=== PATIENT | female | born 1995 | race Caucasian/White ===

== ENCOUNTER 2017-01-09 01:48 | Observation (INO) | payer OTHER ==
[2017-01-09] MEDS ORDERED: NS 0.9% 1000 ML* 1,000 ML IV ONE ×2 (02:23→04:06)
[2017-01-09] MEDS ORDERED: Ondansetron INJ* 2 MG/ML VIAL IV ONE (02:24)
[2017-01-09 03:11] LABS: Albumin 4.2 g/dL (3.2-5.2); BUN/Creatinine Ratio 14.5 (8-20); C Reactive Protein 191.55 mg/L (< 5.00); Calcium 9.6 mg/dL (8.6-10.3); EGFR African American 123.5 (>60); EGFR Non-African American 96.1 (>60); Globulin 3.3 g/dL (2-4); Potassium 2.8 mmol/L (3.5-5.0); Total Bilirubin 0.4 mg/dL (0.2-1.0); Total Protein 7.5 g/dL (6.4-8.9)
[2017-01-09 03:19] LABS: Hematocrit 39 % (35-47); Hemoglobin 13.3 g/dl (12.0-16.0); Mean Corpuscular HGB Conc 34 g/dl (31-36); Mean Corpuscular Hemoglobin 29 pg (27-31); Mean Corpuscular Volume 87 fL (80-97); Mean Platelet Volume 10 um3 (7.4-10.4); Red Blood Count 4.55 10^6/ul (4.0-5.4); Red Cell Distribution Width 12 % (10.5-15); White Blood Count 8.9 10^3/ul (3.5-10.8)
[2017-01-09] MEDS ORDERED: Potassium Chlor TAB* 20 MEQ TAB.ER PO ONE ×2 (04:06→11:09)
[2017-01-09 04:24] LABS: Urine Bacteria Absent (Absent); Urine Bilirubin Negative (Negative); Urine Glucose Negative (Negative); Urine Nitrite Negative (Negative)
[2017-01-09 05:59] LABS: Hematocrit 36 % (35-47); Mean Corpuscular HGB Conc 33 g/dl (31-36); Mean Corpuscular Hemoglobin 29 pg (27-31); Mean Corpuscular Volume 87 fL (80-97); Mean Platelet Volume 9 um3 (7.4-10.4); Red Blood Count 4.15 10^6/ul (4.0-5.4); Red Cell Distribution Width 12 % (10.5-15); White Blood Count 6.9 10^3/ul (3.5-10.8)
[2017-01-09] MEDS ORDERED: metroNIDAZOLE IV 500 MG/100ML* 500 MG/100 ML BAG IVPB ONE (06:24)
[2017-01-09] MEDS ORDERED: Ciprofloxacin 400MG IVPREMIX(* 400 MG/200 ML BAG IVPB ONE (06:24)
[2017-01-09] MEDS ORDERED: Ondansetron INJ* 2 MG/ML VIAL IV PRN (08:32)
[2017-01-09] MEDS ORDERED: Loperamide CAP* 2 MG PO PRN (08:34)
[2017-01-09] MEDS ORDERED: NS 0.9% 1000 ML* 1,000 ML IV SCH (08:45)
[2017-01-09 10:17] LABS: BUN/Creatinine Ratio 13.1 (8-20); EGFR African American 159.2 (>60); EGFR Non-African American 123.8 (>60); Potassium 3.1 mmol/L (3.5-5.0)
[2017-01-09] MEDS ORDERED: Ibuprofen TAB* 400 MG PO PRN (13:31)
[2017-01-09] MEDS ORDERED: Acetaminophen TAB* 325 MG PO PRN (13:31)
[2017-01-09] MEDS ORDERED: Amoxicillin CAP* 500 MG PO SCH (13:31)
--- NOTE | 2017-01-09 13:47 | HP ---
CC: Madiha Rick NP HISTORY AND PHYSICAL/DISCHARGE SUMMARY: DATE OF ADMISSION: 01/09/17 PCP: Madiha Rick NP CHIEF COMPLAINT: Diarrhea, sore throat. HISTORY OF PRESENT ILLNESS: Ms. Darryn Camarena is a 21-year-old female with past medical history of IBS, fibromyalgia, who presents to the hospital with diarrhea, sore throat, and fevers. The patient states that her symptoms began on Wednesday, January 06, when she developed muscle aches, sore throat, subjective fevers, and decreased p.o. intake. She felt like she had strep, which she has had in the past, also some abdominal pain. She took some Advil. She did also have a drink that day at [facility] at [facility], where she is graduating from this weekend. Symptoms persisted into the next day. She had a few drinks of wine morning and continued to feel unwell. Then at night, she had some pastries, which she states she usually does not eat because it upsets her IBS. Beginning yesterday morning, the patient developed diarrhea. She said it has been completely liquidy and black. She reports it was incredibly frequent throughout the day and as soon as she would sit down, she would have to go up and have a bowel movement again. This was associated with some abdominal pain, but did not seem to be resolved with a bowel movement. She states she felt that she went 30 times over the course of the day. She called her father, who is a physician, who told her to monitor things and consider calling an ambulance if it got worse. She went to bed last night, woke up about an hour later and had to move her bowels again. When walking to the bathroom, she felt a cold sweat and felt presyncopal with some lightheadedness. She states she called EMS and when she was walking back to her room, she had a syncopal episode and found herself on the floor. She denies any history of GI bleeds. She says she takes naproxen intermittently for pain, which she took yesterday and also took Advil a few days ago. Denies any sick contacts. Has not had any chest pain, shortness of breath, rhinorrhea, although does report some throat congestion. PAST MEDICAL HISTORY: IBS, constipation, fibromyalgia. PAST SURGICAL HISTORY: [place] teeth removal and tonsillectomy. HOME MEDICATIONS : 1. Amitriptyline 10 mg by mouth nightly. 2. Naproxen 250 mg by mouth daily as needed for pain. ALLERGIES: The patient reports no known drug allergies. FAMILY HISTORY: Unknown, the patient was adopted. SOCIAL HISTORY: The patient is an [employer] student. Drinks alcohol intermittently, which she calls special occasions, up to 2-3 drinks. Smoked about a half to 1 pack a day for 3 years. Occasional marijuana use. REVIEW OF SYSTEMS: A 12-point review of systems is negative except for that as noted in the HPI. PHYSICAL EXAMINATION GENERAL: The patient is a young female, lying in bed, in no apparent distress. VITAL SIGNS: On admission: Temperature 97.7, heart rate 67, respiratory rate 18, O2 saturation 97% on room air, blood pressure 91/59. HEENT: Head normocephalic, atraumatic. Eyes: Pupils are equal, round, and reactive to light and accommodation. Anicteric sclerae. ENT: The patient with some mild white exudates in bilateral posterior oropharynx. Some erythema as well. LUNGS: Clear to auscultation bilaterally. No wheezes, rales, or rhonchi. CARDIOVASCULAR: Regular rate and rhythm. S1, S2 present. No murmurs, gallops , or rubs. ABDOMEN: Soft, nondistended. Tender to palpation in the lower quadrants. EXTREMITIES: No cyanosis, clubbing, or edema. NEUROLOGIC: The patient is alert and oriented x3. No focal neurological deficits. DIAGNOSTIC STUDIES/LAB DATA: White blood cell count of 8.9, hematocrit of 39, platelets of 136. Sodium 128, potassium 2.8, chloride 97, carbon dioxide 21, BUN 11, creatinine 0.76, glucose 105, lactic acid 0.5. LFTs within normal limits. CRP of 191. Lipase of 26. UA with 1+ protein, 2+ ketones, 3+ blood, trace leuk esterase, negative nitrites, 2+ wbc's, 3+ rbc's, squamous epithelial cells, hyaline casts. Stool with C. diff negative. Stool occult blood negative. ASSESSMENT AND PLAN: Sore throat, subjective fevers, diarrhea, syncope in a 21- year-old female, past medical history of IBS and fibromyalgia. 1. Sore throat and fevers. The patient with some exudates on physical exam. I have ordered a rapid strep test, which is pending at this time. We will follow up on this and treat if positive. 2. Abdominal discomfort, GI symptoms, diarrhea. Some of this could be due to possible strep, although the patient may have gastroenteritis as well. She states her stool is black; however, here sent down to lab, it was reported as dark brown and is guaiac negative. C. diff is also negative. Could have a viral gastroenteritis or could possibly be related to alcohol intake and dietary noncompliance with her IBS. We will start the patient on p.r.n. Imodium to see if we can slow her diarrhea. She does have some symptoms of dehydration and hypokalemia. She received IV fluids 2 liters in the emergency department, we will continue at 100 cc per hour. Repeat BMP is pending at this time. 3. Syncope. Likely due to hypotension, volume loss. IVF, will monitor on tele 4. Fibromyalgia. Continue the patient's home amitriptyline. 5. DVT prophylaxis: Low risk, ambulate as needed. 6. Code status: The patient is a full code. TIME SPENT: Total time spent on this admission was 40 minutes with over half the time spent [id number] with the patient in counseling and coordinating care. ADDENDUM: Patient was treated with IV fluids and Imodium with improvement in her symptoms. Rapid strep was negative, throat culture taken which is pending. Will treat empirically with Amoxicillin for strep pharyngitis. No events on tele. Possible viral GI infection. Will discharge home. [id number]/[facility] #: [id number] EVE
[2017-01-09 16:20] VITALS: BP 107/67
--- NOTE | 2017-01-09 20:24 | ED ---
Trena Larios Alok, scribed for Richard Colindres MD on 01/09/17 at 0235 . GI/ HPI - HPI Summary HPI Summary: 21F presents to the ED BIBA for black, tarry stools starting at 1200 today and increasing in frequency since. Pt also notes epigastric pain currently and vomiting last night. Pt also states that during call to 911 experiencing diaphoresis, blurry vision, and loss of balance. Pt also c/o sore throat with white spots. She has taken no medication for relief. PMHx includes IBS and recurring strep throat. PSHx includes tonsillectomy. Her LMP began yesterday. Pt denies tobacco and drinks ETOH occasionally, having more than usualy a few days ago. Her most recent tattoo was done 8 months ago. Pt denies recent antibiotics or recent hospital visits. - History of Current Complaint Chief Complaint: EDAbdPain Time Seen by Provider: 01/09/17 02:07 Stated Complaint: ABD PAIN Hx Obtained From: Patient Onset/Duration: Started Hours Ago, Atraumatic, Still Present Timing: Constant Severity: Moderate Current Severity: Moderate Location of Pain: Epigastric Associated Signs and Symptoms: Positive: Black Tarry Stool, Abdominal Pain Additional Signs & Symptoms: Positive: Other: - diaphoresis, blurry vision, loss of balance - Allergy/Home Medications Allergies/Adverse Reactions: Allergies Allergy/AdvReac Type Severity Reaction Status Date / Time No Known Allergies Allergy Verified 01/09/17 01:51 PMH/Surg Hx/FS Hx/Imm Hx Infectious Disease History: Denies: Traveled Outside the [place] in Last 30 Days - Family History Known Family History: Negative: Hypertension - Social History Occupation: Student Alcohol Use: Occasionally Hx Tobacco Use: No Review of Systems Positive: Skin Diaphoresis. Negative: Fever, Chills Positive: Blurred Vision. Negative: Erythema Positive: Sore Throat Negative: Chest Pain Negative: Shortness Of Breath, Cough Positive: Abdominal Pain, Vomiting, Nausea, Other - black tarry stool Negative: hematuria, incontinence Negative: Myalgia, Edema Negative: Rash Neurological: Other - Dizziness, loss of balance All Other Systems Reviewed And Are Negative: Yes Physical Exam - Summary Physical Exam Summary: Constitutional: Well-developed, Well-nourished, Alert. (-) Distressed Skin: Warm, Dry HENT: Normocephalic; Atraumatic Eyes: Conjunctiva normal Neck: Musculoskeletal ROM normal neck. (-) JVD, (-) Stridor, (-) Tracheal deviation Cardio: Rhythm regular, rate normal, Heart sounds normal; Intact distal pulses; The pedal pulses are 2+ and symmetric. Radial pulses are 2+ and symmetric. (-) Murmur Pulmonary/Chest wall: Effort normal. (-) Respiratory distress, (-) Wheezes, (-) Rales Abd: Soft, Epigastric tenderness Musculoskeletal: (-) Edema Lymph: (-) Cervical adenopathy Neuro: Alert, Oriented x3 Psych: Mood and affect Normal Triage Information Reviewed: Yes Vital Signs On Initial Exam: Initial Vital Signs Temp 97.7 F 01/09/17 02:22 Pulse 67 01/09/17 02:22 Resp 18 01/09/17 02:22 BP 91/59 01/09/17 02:22 Pulse Ox 97 01/09/17 02:22 Vital Signs Reviewed: Yes Diagnostics - Vital Signs Vital Signs Temp Pulse Resp BP Pulse Ox 01/09/17 07:40 36.5 C 01/09/17 06:45 78 87/43 99 01/09/17 06:44 73 88/45 98 01/09/17 05:00 65 87/47 97 01/09/17 04:00 67 91/53 97 01/09/17 03:00 67 16 96/52 99 01/09/17 02:22 36.5 C 67 18 91/59 97 - Laboratory Lab Results: Lab Results 01/09/17 01/09/17 01/09/17 Range/Units 02:45 02:45 02:45 WBC 8.9 (3.5-10.8) 10^3/ul RBC 4.55 (4.0-5.4) 10^6/ul Hgb 13.3 (12.0-16.0) g/dl Hct 39 (35-47) % MCV 87 (80-97) fL MCH 29 (27-31) pg MCHC 34 (31-36) g/dl RDW 12 (10.5-15) % Plt Count 136 L (150-450) 10^3/ul MPV 10 (7.4-10.4) um3 Neut % (Auto) 84.7 H (38-83) % Lymph % (Auto) 6.7 L (25-47) % Hood % (Auto) 8.2 (1-9) % Eos % (Auto) 0.1 (0-6) % Baso % (Auto) 0.3 (0-2) % Absolute Neuts (auto) 7.5 (1.5-7.7) 10^3/ul Absolute Lymphs (auto) 0.6 L (1.0-4.8) 10^3/ul Absolute Monos (auto) 0.7 (0-0.8) 10^3/ul Absolute Eos (auto) 0 (0-0.6) 10^3/ul Absolute Basos (auto) 0 (0-0.2) 10^3/ul Absolute Nucleated RBC 0.01 10^3/ul Nucleated RBC % 0.1 Sodium 128 L (133-145) mmol/L Potassium 2.8 L (3.5-5.0) mmol/L Chloride 97 L (101-111) mmol/L Carbon Dioxide 21 L (22-32) mmol/L Anion Gap 10 (2-11) mmol/L BUN 11 (6-24) mg/dL Creatinine 0.76 (0.51-0.95) mg/dL Est GFR ( Amer) 123.5 (>60) Est GFR (Non-Af Amer) 96.1 (>60) BUN/Creatinine Ratio 14.5 (8-20) Glucose 105 H (70-100) mg/dL Lactic Acid 0.5 (0.5-2.0) mmol/L Calcium 9.6 (8.6-10.3) mg/dL Total Bilirubin 0.40 (0.2-1.0) mg/dL AST 24 (13-39) U/L ALT 14 (7-52) U/L Alkaline Phosphatase 48 (34-104) U/L C-Reactive Protein 191.55 H (< 5.00) mg/L Total Protein 7.5 (6.4-8.9) g/dL Albumin 4.2 (3.2-5.2) g/dL Globulin 3.3 (2-4) g/dL Albumin/Globulin Ratio 1.3 (1-3) Lipase 26 (11.0-82.0) U/L Beta HCG, Quant 1.03 mIU/mL Urine Color Urine Appearance Urine pH (5-9) Ur Specific [place] (1.010-1.030) Urine Protein (Negative) Urine Ketones (Negative) Urine Blood (Negative) Urine Nitrate (Negative) Urine Bilirubin (Negative) Urine Urobilinogen (Negative) Ur Leukocyte Esterase (Negative) Urine WBC (Auto) (Absent) Urine RBC (Auto) (Absent) Ur Squamous Epith Cells (Absent) Urine Bacteria (Absent) Hyaline Casts (Absent) Urine Glucose (Negative) Urine Ascorbic Acid (Negative) Group A Strep Rapid (Negative) 01/09/17 01/09/17 01/09/17 Range/Units 03:50 05:45 08:24 WBC 6.9 (3.5-10.8) 10^3/ul RBC 4.15 (4.0-5.4) 10^6/ul Hgb 12.0 (12.0-16.0) g/dl Hct 36 (35-47) % MCV 87 (80-97) fL MCH 29 (27-31) pg MCHC 33 (31-36) g/dl RDW 12 (10.5-15) % Plt Count 119 L (150-450) 10^3/ul MPV 9 (7.4-10.4) um3 Neut % (Auto) (38-83) % Lymph % (Auto) (25-47) % Hood % (Auto) (1-9) % Eos % (Auto) (0-6) % Baso % (Auto) (0-2) % Absolute Neuts (auto) (1.5-7.7) 10^3/ul Absolute Lymphs (auto) (1.0-4.8) 10^3/ul Absolute Monos (auto) (0-0.8) 10^3/ul Absolute Eos (auto) (0-0.6) 10^3/ul Absolute Basos (auto) (0-0.2) 10^3/ul Absolute Nucleated RBC 10^3/ul Nucleated RBC % Sodium (133-145) mmol/L Potassium (3.5-5.0) mmol/L Chloride (101-111) mmol/L Carbon Dioxide (22-32) mmol/L Anion Gap (2-11) mmol/L BUN (6-24) mg/dL Creatinine (0.51-0.95) mg/dL Est GFR ( Amer) (>60) Est GFR (Non-Af Amer) (>60) BUN/Creatinine Ratio (8-20) Glucose (70-100) mg/dL Lactic Acid (0.5-2.0) mmol/L Calcium (8.6-10.3) mg/dL Total Bilirubin (0.2-1.0) mg/dL AST (13-39) U/L ALT (7-52) U/L Alkaline Phosphatase (34-104) U/L C-Reactive Protein (< 5.00) mg/L Total Protein (6.4-8.9) g/dL Albumin (3.2-5.2) g/dL Globulin (2-4) g/dL Albumin/Globulin Ratio (1-3) Lipase (11.0-82.0) U/L Beta HCG, Quant mIU/mL Urine Color Yellow Urine Appearance Cloudy Urine pH 5.0 (5-9) Ur Specific [place] 1.023 (1.010-1.030) Urine Protein 1+(30 mg/dl) H (Negative) Urine Ketones 2+ H (Negative) Urine Blood 3+ H (Negative) Urine Nitrate Negative (Negative) Urine Bilirubin Negative (Negative) Urine Urobilinogen Negative (Negative) Ur Leukocyte Esterase Trace H (Negative) Urine WBC (Auto) 2+(11-20/hpf) H (Absent) Urine RBC (Auto) 3+(>10/hpf) H (Absent) Ur Squamous Epith Cells Present H (Absent) Urine Bacteria Absent (Absent) Hyaline Casts Present H (Absent) Urine Glucose Negative (Negative) Urine Ascorbic Acid * H (Negative) Group A Strep Rapid Negative (Negative) Result Diagrams: 01/09/17 05:45 01/09/17 09:33 Lab Statement: Any lab studies that have been ordered have been reviewed, and results considered in the medical decision making process. GIGU Course/Dx - Course Course Of Treatment: My concern for this patient is marginal BP which may be normal given her thin stature, decreasing H+H (in setting of IV fluid administration) and report of melena. Observation status for these reasons and electrolyte abnormalities - Diagnoses Provider Diagnoses: Hyponatremia, Hypokalemia, Diarrhea, UTI (urinary tract infection), Syncope - Physician Notifications Discussed Care Of Patient With: Lab @ 0612 - Stool culture blood results negative. Dr. Martinez (Hospitalist) @ 8061 - Will admit pt Discharge - Discharge Plan Condition: Good Disposition: ADMITTED TO [facility] The documentation as recorded by the Trena villatoro Alok accurately reflects the service I personally performed and the decisions made by me, Richard Colindres MD.
== END 2017-01-09 19:20 | disposition home or self-care (01) ==
LOC: ED 01:48 → MEDTELE 08:32
PROVIDERS: ADMIT Hospitalist; ATTEND Hospitalist
DX: R19.7 Diarrhea, unspecified (principal); J02.9 Acute pharyngitis, unspecified; R50.9 Fever, unspecified; R55 Syncope and collapse; K58.9 Irritable bowel syndrome, unspecified; M79.7 Fibromyalgia; Z79.899 Other long term (current) drug therapy; F17.210 Nicotine dependence, cigarettes, uncomplicated; R19.5 Other fecal abnormalities
CPT/HCPCS: 36415; 80048; 80053; 81003; 81015; 82270; 83605; 83630; 83690; 84702; 85025; 85027; 86140; 87045; 87046; 87070; 87077; 87086; 87177; 87209; 87328; 87329; 87493; 87651; 87899; 96361; 96365; 96367; 96375; 99284; A9270-GY; G0378; J0744; J2405